=== PATIENT | male | born 1970 | race Caucasian/White ===

== ENCOUNTER 2017-12-24 19:57 | Emergency (ER) | payer BC, MEDICAID, SELFPAY ==
[2017-12-24 19:58] VITALS: BP 143/89; PULSE 77; PULSE 80; RESP 18; TEMP 37.2; O2SAT 96; O2SAT 97; BMI 31.6
--- NOTE | 2017-12-24 20:25 | ED.DCSUM_ITS ---
- ER Visit Summary Date of Service: 12/24/17 Chief Complaint: Suicidal ideation History of Present Illness: The patient is a 47 M presenting with suicidal ideation. Patient states he texted his ex- and told her that he was suicidal. She called the police and he was brought to the emergency department. He has had thoughts of hanging himself. Previous suicidal ideation in the past. He states he has had family issues and a lot going on. He has not been eating or sleeping. Denies hallucinations. Denies other complaints. Physical Examination: Vitals are stable. Patient is afebrile. Alert no acute distress. HEENT exam is unremarkable. Neck is supple. Lungs are clear and equal bilaterally. Heart is regular rate and rhythm. Abdomen is soft nontender nondistended. Extremities are unremarkable. Skin is warm and dry. No focal neurologic deficit. Agitated, suicidal ideation Remainder of exam is unremarkable. Emergency Department Course and Treatment: CBC shows a white count of 13.6. Chemistries unremarkable. Tox and alcohol are negative. At one point during the patient's ED stay, he became violent and was threatening to leave. He threatened violence towards staff if they did not let him leave. He was given Geodon IM and placed in four-point leather restraints for patient and staff safety. Counseling center is evaluating the patient for disposition. Disposition: Per counseling center Impression: Suicidal ideation This note was generated with [employer] dictation software. It may contain incorrect words, spelling, and punctuation that were not noted in review of the chart prior to signing ED Disposition - Plan for ED Patient: Chief Complaint: Mental Health Referrals: [facility],Out of [Primary Care Provider] -
[2017-12-24 20:34] LABS: Absolute Lymphocyte Count 3.77 X10^3/ul (0.83-4.51); Absolute Neutrophil Count 8.8 X10^3/uL (2.0-7.7); Basophil# 0.04 X10^3/uL; Basophil% 0.3 % (0-1); Eosinophil# 0.09 X10^3/uL; Eosinophils% 0.7 % (0-5); Hematocrit 44.9 % (40-54); Lymphocyte # 3.77 X10^3/ul (4.0); Lymphocyte % 27.7 % (19-41); Mean Corp Hgb Conc 33.4 g/gl (32-36); Mean Corpuscular Volume 83.8 fL (80-94); Mean Platelet Vol. 9.6 fl (6.2-12.0); Monocyte# 0.91 X10^3/uL; Monocyte% 6.7 % (0-10); Neutrophil # 8.79 X10^3/uL (2.7-7.7); Neutrophil % 64.5 % (47-70); POSITIVE COUNT NO; POSITIVE DIFFERENTIAL NO; POSITIVE MORPHOLOGY NO; Platelet Count 317 K/mm3 (150-450); RBC Distribution Width CV 12.6 % (11.6-14.6); Red Blood Count 5.36 M/mm3 (4.6-6.2); White Blood Count 13.6 K/mm3 (4.4-11.0)
[2017-12-24 20:55] LABS: ALB/GLOB Ratio 1.1 RATIO (0.9-2.4); AST(SGOT) 14 U/L (15-37); Alanine Aminotransfer ALT/SGPT 35 U/L (16-61); Albumin, Serum 4.1 g/dL (3.2-5.0); Alcohol, Blood (Medical)-Serum < 3.0 mg/dL; Alkaline Phosphatase 78 U/L (45-117); Anion Gap 10 (5-15); BUN 13 mg/dL (7-18); BUN/Creat Ratio 15.2 RATIO (10-20); Calcium,Total 8.6 mg/dL (8.5-10.1); Chloride 106 mmol/L (98-107); Creatinine, Serum 0.85 mg/dL (0.70-1.30); EST Glomerular Filtration Rate 103 mL/min (>60); Est Glom Filt Rate - Afr Amer 124 mL/min (>60); Estimated Creatinine Clearance 115.66 ml/min; Globulin 3.6 g/dL (2.2-4.2); Glucose 114 mg/dL (74-106); Protein, Total 7.7 g/dL (6.4-8.2); Sodium Level 142 mmol/L (136-145)
[2017-12-24 22:00] VITALS: BP 142/78; PULSE 80; RESP 14; O2SAT 99
[2017-12-24 22:10] LABS: Amphetamine Urine VISTA NEGATIVE (<1000 ng/mL); Barbiturate Urine VISTA NEGATIVE (< 200 ng/mL); Benzodiazepine Urine VISTA NEGATIVE (< 200 ng/mL); Cocaine Urine VISTA NEGATIVE (< 300 ng/mL); Ecstacy Urine VISTA NEGATIVE (< 500 ng/mL); Methadone Urine VISTA NEGATIVE (< 300 ng/mL); PCP Urine VISTA NEGATIVE (< 25 ng/mL); THC Urine VISTA NEGATIVE (< 50 ng/mL); Vista UDS pH Range 6
[2017-12-24] MEDS: Ziprasidone IM 20 MG/ML VIAL IM (23:25)
[2017-12-24 23:30] VITALS: BP 172/104; PULSE 103; RESP 20; O2SAT 98
--- NOTE | 2017-12-24 23:41 | ED.RN ---
Patient upset over the time it is taking for crisis to see him. Patient advised he is on the waiting list for crisis they are currently seeing other patients. Patient says he is not staying and going to leave we have no right to keep him here. Patient advised he is pink slipped and he must remain in the ER until seen by crisis. Patient states you cant fucking keep me here I am leaving. Pt offered a injection of geodon to help calm down. Patient refused medication and threatening to leave. [place] Police called and Patient became violent towards police. Pt unwilling to listen to anything anyone has to say. Patient placed into to four point leather restraints at this time and shot of IM geodon given. Patient safety assessed.
[2017-12-25] VITALS (12 sets, daily range): BP systolic 113–160; BP diastolic 71–96; PULSE 66–86; RESP 14–16; TEMP 37.2; O2SAT 95–99
--- NOTE | 2017-12-25 00:45 | ED.RN ---
patient placed in bilateral restraints at this time. right wrist and left ankle
--- NOTE | 2017-12-25 06:34 | ED.RN ---
crisis here to see patient at this time
--- NOTE | 2017-12-25 07:50 | EKG12_ITS ---
Test Reason : MENTAL JEAN CLAUDE Blood Pressure : / mmHG Vent. Rate : 088 BPM Atrial Rate : 088 BPM P-R Int : 152 ms QRS Dur : 092 ms QT Int : 378 ms P-R-T Axes : 038 -10 023 degrees QTc Int : 457 ms Normal sinus rhythm with sinus arrhythmia Normal ECG Confirmed by TAHIR WATSON, GRISELDA ([id number]), news assignment editor ROHAN RAHMAN ([id number]) on 12/29/2017 1:47:52 PM Referred By: [facility] Confirmed By:GRISELDA HARO MD
[2017-12-25] MEDS: Ziprasidone IM 20 MG/ML VIAL IM (12:44)
== END 2017-12-25 12:51 | disposition short-term general hospital (02) ==
LOC: ED 20:40
PROVIDERS: Emergency Provider Emergency Medicine
DX: R45.851 Suicidal ideations (principal)
CPT/HCPCS: 80053; 80307; 80320; 85025; 93005; 96372; 99284; G0480; J3486

== ENCOUNTER 2018-02-22 19:29 | Emergency (ER) | payer MEDICAID, SELFPAY ==
[2018-02-22 19:29] VITALS: BP 158/83; PULSE 70; RESP 16; TEMP 37.2; O2SAT 98; BMI 33.5
--- NOTE | 2018-02-22 19:29 | DT_ITS ---
This patient was seen during an EMR downtime February 15, 2018 - February 22, 2018. This patient may have a combination of paper and electronic documentation or all paper documentation. All documentation is viewable within the e-chart portion of [facility] for each patient visit.
--- NOTE | 2018-02-22 19:47 | CT_ITS ---
STUDY: CT ABDOMEN AND PELVIS WITHOUT CONTRAST REASON FOR EXAM: Male, 47 years old. Abdominal pain RADIATION DOSAGE (If Supplied By Facility): CTDIvol = ( 22.16 ) mGy, DLP = ( 1096.32 ) mGycm TECHNIQUE: Transaxial images were obtained from the dome of the diaphragm to the symphysis pubis without oral contrast, and without intravenous contrast. Sagittal and coronal images were reconstructed. Individualized dose optimization techniques were used for this CT. COMPARISON: None. FINDINGS: Evaluation of the abdominal viscera is limited in the absence of intravenous contrast. The visualized lung bases are clear. The visualized portions of the heart and pericardium are within normal limits. There are no calcified gallstones present. The liver is low in density, consistent with fatty infiltration. The spleen is normal in size. The pancreas demonstrates an unremarkable unenhanced appearance. The adrenal glands are within normal limits. There are no urinary stones. There is no hydronephrosis. Normal visualized stomach. There is no bowel obstruction or inflammation. The appendix is visualized and appears normal. The aorta is normal in caliber. There is no abdominal or pelvic free air, free fluid, fluid collection or lymphadenopathy. There are no destructive osseous lesions. CT/Abdomen/Pelvis without Cont IMPRESSION: No acute abdominal or pelvic pathology demonstrated on this noncontrast CT. Fatty liver. Electronically Signed: Kamari Sidhu, at 20:50 EDT Tel , Service support ,
[2018-02-22] MEDS: Ketorolac 30 MG/ML Syringe IV (20:04)
[2018-02-22] MEDS: 0.9% Normal Saline 1,000 ML 150 ML IV (20:04)
[2018-02-22] MEDS: Ondansetron 4 MG/2 ML Vial IV (20:04)
[2018-02-22 20:32] LABS: Bacteria 0 SEEN /hpf (None Seen)
[2018-02-22 20:33] LABS: Color, Urine Yellow (Yellow); Glucose, Dipstick Normal (Normal); Ketone-Dipstick Negative (Negative); Leukocyte Esterase-Dipstick 100 /ul (Negative); Nitrite-Dipstick Negative (Negative); Occult Blood-Urine 10 /ul (Negative); Protein-Dipstick 15 mg/dl (Negative); Urine Bilirubin Dipstick Negative (Negative); Urine Clarity Sl. Cloudy (Clear); Urine Urobilinogen Normal (Normal)
[2018-02-22 20:35] LABS: Absolute Lymphocyte Count 3.18 X10^3/ul (0.83-4.51); Absolute Neutrophil Count 8.1 X10^3/uL (2.0-7.7); Basophil# 0.03 X10^3/uL; Basophil% 0.2 % (0-1); Eosinophil# 0.23 X10^3/uL; Eosinophils% 1.9 % (0-5); Hematocrit 41.7 % (40-54); Lymphocyte # 3.18 X10^3/ul (4.0); Lymphocyte % 25.7 % (19-41); Mean Corp Hgb Conc 33.6 g/gl (32-36); Mean Corpuscular Hgb 28.1 pg (27.0-32.0); Mean Corpuscular Volume 83.6 fL (80-94); Mean Platelet Vol. 10.2 fl (6.2-12.0); Monocyte# 0.84 X10^3/uL; Monocyte% 6.8 % (0-10); Neutrophil # 8.06 X10^3/uL (2.7-7.7); Neutrophil % 65.1 % (47-70); Platelet Count 283 K/mm3 (150-450); RBC Distribution Width CV 12.6 % (11.6-14.6); RBC Distribution Width SD 38.1 fl (35.1-43.9); Red Blood Count 4.99 M/mm3 (4.6-6.2); White Blood Count 12.4 K/mm3 (4.4-11.0)
[2018-02-22 20:40] LABS: Mucous, Urine RARE /hpf (<or=2+); Squamous Epithelial Cells - UA 0-5 SEEN /hpf (0-5)
[2018-02-22 20:41] LABS: Red Blood Cells-Urine 0-5 SEEN /hpf (0-5); White Blood Cells 0-5 SEEN /hpf (0-5)
[2018-02-22 20:43] LABS: Anion Gap 6 (5-15); BUN 10 mg/dL (7-18); BUN/Creat Ratio 11.8 RATIO (10-20); Calcium,Total 8.9 mg/dL (8.5-10.1); Chloride 103 mmol/L (98-107); Creatinine, Serum 0.85 mg/dL (0.70-1.30); EST Glomerular Filtration Rate 103 mL/min (>60); Est Glom Filt Rate - Afr Amer 125 mL/min (>60); Glucose 74 mg/dL (74-106); Potassium 3.8 mmol/L (3.5-5.1); Sodium Level 138 mmol/L (136-145)
[2018-02-22 20:46] LABS: POSITIVE COUNT NO; POSITIVE DIFFERENTIAL NO; POSITIVE MORPHOLOGY NO
--- NOTE | 2018-02-22 21:29 | ED.DCSUM_ITS ---
- ER Visit Summary Date of Service: 02/22/18 Chief Complaint: Abdominal pain History of Present Illness: The patient is a 47 M with right lower quadrant abdominal pain for the past 1 week. Patient states is intermittent and sharp and stabbing when it does hit. He denies any pain into the testicle. He does report having some difficulty urinating today at work. He has had no nausea, vomiting, or diarrhea. He has not taken anything for pain. Physical Examination: Vital signs are significant for blood pressure of 158/83, otherwise unremarkable. Head neck examination is normal. Heart is regular rate and rhythm. On lung sounds are clear. Abdomen is soft with mild tenderness in the right lower quadrant. There is no guarding or rebound. Hypoactive but present bowel sounds are noted. Back examination reveals minimal tenderness in the right CVA region. There are no overlying skin changes. Test Results: CBC was a white count 12.4 with normal differential. Chemistry studies normal. Urinalysis normal. CT flank shows no acute pathology. Fatty liver is noted. Emergency Department Course and Treatment: Patient was given Toradol, Zofran, and IV fluids. On repeat evaluation he is resting comfortably. Test results were discussed with him. He will be given naproxen and advised to follow-up with his primary care physician in [place]. Treatment Plan: [] Disposition: Discharge Impression: Abdominal pain, uncertain etiology This note was generated with [employer] dictation software. It may contain incorrect words, spelling, and punctuation that were not noted in review of the chart prior to signing ED Disposition - Plan for ED Patient: Chief Complaint: Abd Pain Referrals: [facility] Doctor,Out of [Primary Care Provider] -
--- NOTE | 2018-02-22 21:31 | ED.DEP ---
ED Disposition - Plan for ED Patient: Disposition: Home or Assisted Living Chief Complaint: Abd Pain Instructions: ED Abdominal Pain Unkn Cause Male Prescriptions: Naproxen [Naprosyn] 500 mg PO BID PRN #20 tablet Referrals: [facility] Doctor,Out of [Primary Care Provider] - 1 Week if not improving
[2018-02-22 21:43] VITALS: BP 123/79; PULSE 71; RESP 12; RESP 18; O2SAT 97
== END 2018-02-22 21:44 | disposition home or self-care (01) ==
PROVIDERS: Emergency Provider Emergency Medicine
DX: R10.31 Right lower quadrant pain (principal); Z79.84 Long term (current) use of oral hypoglycemic drugs; Z79.899 Other long term (current) drug therapy
CPT/HCPCS: 74176; 80048; 81001; 85025; 96361; 96374; 96375; 99284; J2405

== ENCOUNTER 2018-03-02 07:56 | Emergency (ER) | payer MEDICAID, SELFPAY ==
[2018-03-02 07:57] VITALS: BP 152/85; PULSE 74; RESP 18; TEMP 36.6; O2SAT 98; BMI 32.1
--- NOTE | 2018-03-02 08:13 | ED.VISSUMM ---
- ER Visit Summary Date of Service: 03/02/18 Chief Complaint: [Rash] History of Present Illness: The patient is a 47 M [presents the emergency department with a rash that started 3 days ago. Patient describes the rash has pruritic. Patient states that yesterday he had some mild swelling of his lower lip. Patient denies any difficulty breathing or swallowing at this time. Patient denies any new soaps, detergents, or other allergens. Patient denies eating any unusual foods. Patient denies applying any new creams or sunscreens. Patient denies working in any areas that may have exposed him to any type of plants or weeds. Patient denies recent illness other than a minimal sore throat this morning. Denies fevers. Patient does not believe he has had a similar rash in the past. Patient denies any medication changes or medication allergies. Patient denies antibiotic usage.] Physical Examination: [HEENT-PERRLA, EOMI. Cranial nerves II through XII grossly intact. TMs clear. Mucous membranes moist. No adenopathy. Uvula is in the midline without edema. No angioedema of the tongue or lips noted. Cardiovascular-regular rate and rhythm without murmur or ectopy Lungs-clear to auscultation, chest wall stable without crepitus or subcu emphysema Abdomen-normoactive bowel sounds, soft, nontender, no rebound or rigidity, no peritoneal signs. Extremities-intact ?4, normal range of motion, normal pulses, atraumatic] Skin-patient has some faint erythematous rash that slightly raised and is diffuse involving the entire body. No petechiae or purpura noted. Rash is blanchable. No vesicles. Test Results: [None indicated] Emergency Department Course and Treatment: [Patient was started on prednisone] Treatment Plan: [Patient will be treated with prednisone and Atarax.] Disposition: [Discharged home in stable condition. Patient advised to follow-up with his primary care physician within the next 5-7 days and I will also refer him to a glass silverer locally.] Impression: [Dermatitis-etiology uncertain] This note was generated with [employer] software. It may contain incorrect words, spelling, and punctuation that were not noted in review of the chart prior to signing ED Disposition - Plan for ED Patient: Chief Complaint: Rash Referrals: [facility] [address] ,Out of [Primary Care Provider] -
--- NOTE | 2018-03-02 08:17 | ED.DCSUM_ITS ---
- ER Visit Summary Date of Service: 03/02/18 Chief Complaint: [Rash] History of Present Illness: The patient is a 47 M [presents the emergency department with a rash that started 3 days ago. Patient describes the rash has pruritic. Patient states that yesterday he had some mild swelling of his lower lip. Patient denies any difficulty breathing or swallowing at this time. Patient denies any new soaps, detergents, or other allergens. Patient denies eating any unusual foods. Patient denies applying any new creams or sunscreens. Patient denies working in any areas that may have exposed him to any type of plants or weeds. Patient denies recent illness other than a minimal sore throat this morning. Denies fevers. Patient does not believe he has had a similar rash in the past. Patient denies any medication changes or medication allergies. Patient denies antibiotic usage.] Physical Examination: [HEENT-PERRLA, EOMI. Cranial nerves II through XII grossly intact. TMs clear. Mucous membranes moist. No adenopathy. Uvula is in the midline without edema. No angioedema of the tongue or lips noted. Cardiovascular-regular rate and rhythm without murmur or ectopy Lungs-clear to auscultation, chest wall stable without crepitus or subcu emphysema Abdomen-normoactive bowel sounds, soft, nontender, no rebound or rigidity, no peritoneal signs. Extremities-intact ?4, normal range of motion, normal pulses, atraumatic] Skin-patient has some faint erythematous rash that slightly raised and is diffuse involving the entire body. No petechiae or purpura noted. Rash is blanchable. No vesicles. Test Results: [None indicated] Emergency Department Course and Treatment: [Patient was started on prednisone] Treatment Plan: [Patient will be treated with prednisone and Atarax.] Disposition: [Discharged home in stable condition. Patient advised to follow- up with his primary care physician within the next 5-7 days and I will also refer him to a pain management physician locally.] Impression: [Dermatitis-etiology uncertain] This note was generated with [employer] software. It may contain incorrect words, spelling, and punctuation that were not noted in review of the chart prior to signing ED Disposition - Plan for ED Patient: Chief Complaint: Rash Referrals: [facility] ,Out of [Primary Care Provider] -
--- NOTE | 2018-03-02 08:17 | ED.DEP ---
ED Disposition - Plan for ED Patient: Chief Complaint: Rash Instructions: ED Dermatitis Non Specific Rash Prescriptions: hydrOXYzine tablet [Atarax tablet] 10 mg PO 4X/DAY PRN PRN #20 tab PRN Reason: Itching Prednisone [Deltasone] 20 mg PO BID #10 tab Referrals: [facility] Doctor,Out of [Primary Care Provider] - 5-7 Days David Toledo MD [STAFF PHYSICIAN] - 5-7 Days
--- NOTE | 2018-03-02 08:20 | DCINST.ED_ITS ---
ED Disposition - Plan for ED Patient: Chief Complaint: Rash Instructions: ED Dermatitis Non Specific Rash Prescriptions: hydrOXYzine tablet [Atarax tablet] 10 mg PO 4X/DAY PRN PRN #20 tab PRN Reason: Itching Prednisone [Deltasone] 20 mg PO BID #10 tab Referrals: [facility] Doctor,Out of [Primary Care Provider] - 5-7 Days David Toledo MD [STAFF PHYSICIAN] - 5-7 Days
[2018-03-02] MEDS: predniSONE 20 MG Tablet 40 MG PO (08:21)
[2018-03-02 08:22] VITALS: PULSE 85; RESP 16; O2SAT 99
== END 2018-03-02 08:30 | disposition home or self-care (01) ==
LOC: ED 08:24
PROVIDERS: Emergency Provider Emergency Medicine
DX: L30.9 Dermatitis, unspecified (principal); I10 Essential (primary) hypertension; F32.9 Major depressive disorder, single episode, unspecified; Z79.84 Long term (current) use of oral hypoglycemic drugs; Z79.899 Other long term (current) drug therapy
CPT/HCPCS: 99282

== ENCOUNTER 2018-05-07 07:38 | Emergency (ER) | payer MEDICAID, SELFPAY ==
[2018-05-07 07:38] VITALS: BP 165/106; PULSE 66; RESP 15; TEMP 36.2; BMI 33.9
--- NOTE | 2018-05-07 07:55 | ED.VISSUMM ---
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 He is left-hand dominant. Since last evening he started getting pain in his left posterior shoulder blade. He denies any chest pain. He denies any shortness of breath. It is worse with movement. He said he has pain going down his left arm. He denies any falls or trauma. He denies any other complaints. He denies any weakness or numbness. Physical Examination: Well appearing middle-aged male. Vital signs are stable and afebrile. H EENT exam is unremarkable. Neck is nontender. Full range of motion to his neck. Lungs clear to auscultation bilaterally. Heart regular rate and rhythm no murmur. Abdomen is soft and nontender. He is moving all 4 extremities. They are neurovascularly intact. Specifically he has full range of motion to his left shoulder, elbow, wrist and hand. His left hand is 5 out of 5 motor strength. He has a strong palpable radial pulse. He has normal sensation throughout the left arm and range of motion. The left posterior shoulder medial to the shoulder blade the soft tissue he has muscle spasm and tenderness to palpation. There are no signs of trauma. Otherwise his exam is unremarkable. Test Results: None Emergency Department Course and Treatment: History and exam are consistent with a left posterior trapezius muscle spasm with a pinched nerve. Treatment Plan: Patient denied discussed treatment options. His insurance does not cover Skelaxin. He will be placed on Valium 10 mg as needed 3 times daily. Motrin for pain and inflammation. He is to use a heating pad. Hot shower and warm bath. And massage. 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 Disposition: Discharge Impression: Acute left posterior shoulder pain secondary to trapezius spasm with pinched nerve This note was generated with [employer] dictation software. It may contain incorrect words, spelling, and punctuation that were not noted in review of the chart prior to signing ED Disposition - Plan for ED Patient: Chief Complaint: Upper Extremity Injury Referrals: Care Physician,No Primary [Primary Care Provider] -
--- NOTE | 2018-05-07 07:58 | ED.DCSUM_ITS ---
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 He is left-hand dominant. Since last evening he started getting pain in his left posterior shoulder blade. He denies any chest pain. He denies any shortness of breath. It is worse with movement. He said he has pain going down his left arm. He denies any falls or trauma. He denies any other complaints. He denies any weakness or numbness. Physical Examination: Well appearing middle-aged male. Vital signs are stable and afebrile. H EENT exam is unremarkable. Neck is nontender. Full range of motion to his neck. Lungs clear to auscultation bilaterally. Heart regular rate and rhythm no murmur. Abdomen is soft and nontender. He is moving all 4 extremities. They are neurovascularly intact. Specifically he has full range of motion to his left shoulder, elbow, wrist and hand. His left hand is 5 out of 5 motor strength. He has a strong palpable radial pulse. He has normal sensation throughout the left arm and range of motion. The left posterior shoulder medial to the shoulder blade the soft tissue he has muscle spasm and tenderness to palpation. There are no signs of trauma. Otherwise his exam is unremarkable. Test Results: None Emergency Department Course and Treatment: History and exam are consistent with a left posterior trapezius muscle spasm with a pinched nerve. Treatment Plan: Patient denied discussed treatment options. His insurance does not cover Skelaxin. He will be placed on Valium 10 mg as needed 3 times daily. Motrin for pain and inflammation. He is to use a heating pad. Hot shower and warm bath. And massage. 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 Disposition: Discharge Impression: Acute left posterior shoulder pain secondary to trapezius spasm with pinched nerve This note was generated with [employer] dictation software. It may contain incorrect words, spelling, and punctuation that were not noted in review of the chart prior to signing ED Disposition - Plan for ED Patient: Chief Complaint: Upper Extremity Injury Referrals: Care Physician,No Primary [Primary Care Provider] -
--- NOTE | 2018-05-07 07:58 | ED.DEP ---
ED Disposition - Plan for ED Patient: Disposition: Home or Assisted Living Chief Complaint: Upper Extremity Injury Instructions: ED Spasm Muscle Prescriptions: Diazepam [Valium] 10 mg PO Q8H PRN PRN #10 tab PRN Reason: Muscle Spasm Referrals: Care Physician,No Primary [Primary Care Provider] - 1 Week if not improving Additional Instructions: Hot shower, warm bath and massage to help relax the left posterior shoulder muscle. Motrin or Aleve for pain and inflammation. Valium as a muscle relaxant. Do not drive after taking the Valium. Follow-up with primary care physician if not improving in 1 week.
--- NOTE | 2018-05-07 08:02 | ED.RN ---
Physician cancelled order. Pt took Advil this am.
== END 2018-05-07 08:12 | disposition home or self-care (01) ==
PROVIDERS: Emergency Provider Emergency Medicine
DX: M62.838 Other muscle spasm (principal); G58.8 Other specified mononeuropathies; M25.512 Pain in left shoulder
CPT/HCPCS: 99282